=== PATIENT | female | born 1985 | race Caucasian/White ===

== ENCOUNTER 2018-07-17 12:43 | Emergency (ER) | payer SELFPAY ==
[~2018-07-17] VITALS: Ht 160 cm; Wt 51.3 kg
[2018-07-17] MEDS ORDERED: TDAP DIPH,PERTUSS,TET VAC/PF 0.5 ML DISP.SYRIN IM ONE ×2 (13:30→13:31)
[2018-07-17] MEDS ORDERED: AMOXICILLIN-CLAVUL 875-125MG TABLET PO ONE (13:30)
[2018-07-17] MEDS ORDERED: LIDOCAINE HCL 1% 20 ML VIAL IJ ONE (13:30)
[2018-07-17] MEDS ORDERED: AMOXICILLIN-CLAVUL 875-125MG TABLET ONE (13:31)
--- NOTE | 2018-07-17 13:50 | NUR ---
at bedside suturing wound to right forearm.
[2018-07-17] MEDS ORDERED: HYDROCODONE/APAP 5-325MG TABLET PO ONE (14:15)
[2018-07-17] MEDS ORDERED: NEOMY/BACITRA/POLYMYXIN B OINT UD PACKET TP ONE ×2 (14:15→14:22)
[2018-07-17] MEDS ORDERED: HYDROCODONE/APAP 5-325MG TABLET ONE (14:16)
--- NOTE | 2018-07-17 14:23 | NUR ---
DCD instructions and prescription given to pt. who verbalized understanding. Medicated for pain as ordered. Pt. left room [id number]. right arm covered with dressing.
== END 2018-07-17 14:40 | disposition home or self-care (01) ==
LOC: ER 12:43
DX: S51.811A Laceration without foreign body of right forearm, initial encounter (principal); S51.851A Open bite of right forearm, initial encounter; W54.0XXA Bitten by dog, initial encounter; Y93.89 Activity, other specified; Y92.89 Other specified places as the place of occurrence of the external cause; Y99.8 Other external cause status
CPT/HCPCS: 12002; 90471; 90715; 99284; J3490; A4217; A4663

== ENCOUNTER 2018-07-19 19:11 | Emergency (ER) | payer SELFPAY ==
[~2018-07-19] VITALS: Ht 160 cm; Wt 51.3 kg
--- NOTE | 2018-07-19 19:38 | NUR ---
DR. NIKKI COX MD AT BEDSIDE FOR MSE.
[2018-07-19 19:56] VITALS: BP 122/66
--- NOTE | 2018-07-19 19:56 | NUR ---
Patient discharged to home in stable conditon. Written and verbal after care instructions given. Patient verbalizes understanding of instructions. Walked out of ER with no distress noted
== END 2018-07-19 20:03 | disposition home or self-care (01) ==
LOC: ER 19:12
DX: S50.11XA Contusion of right forearm, initial encounter (principal); W54.0XXA Bitten by dog, initial encounter; Y93.89 Activity, other specified; Y92.89 Other specified places as the place of occurrence of the external cause; Y99.8 Other external cause status
CPT/HCPCS: A4663